=== PATIENT | male | born 1970 | race Caucasian/White ===

== ENCOUNTER 2019-11-05 07:06 | Emergency (ER) | payer BC ==
--- NOTE | 2019-11-05 08:17 | EDM.PDOC ---
ED HPI GENERAL MEDICAL PROBLEM - General Chief Complaint: General Stated Complaint: CUT FINGER Time Seen by Provider: 11/05/19 07:40 Source of Information: Reports: Patient, RN History Limitations: Reports: No Limitations - History of Present Illness INITIAL COMMENTS - FREE TEXT/NARRATIVE: 49 yo male presents [place] to right [place] He was stepping out of shower and cut finger on the toilet. He is here from [place] and planning to fish for a couple days. He is here with friends. Tetanus vaccine updated. Past Medical History - Past Health History Medical/Surgical History: Denies Medical/Surgical History Social & Family History - Tobacco Use Smoking Status *Q: Never Smoker Second Hand Smoke Exposure: No - Caffeine Use Caffeine Use: Reports: Coffee - Recreational Drug Use Recreational Drug Use: No ED ROS GENERAL - Review of Systems Review Of Systems: See Below Constitutional: Reports: No Symptoms Respiratory: Reports: No Symptoms Cardiovascular: Reports: No Symptoms Skin: Reports: Other (laceration of right pointer finger.) ED EXAM, GENERAL - Physical Exam Exam: See Below Exam Limited By: No Limitations General Appearance: Alert, No Apparent Distress Ears: Hearing Grossly Normal Throat/Mouth: Normal Voice, No Airway Compromise Neck: Full Range of Motion Respiratory/Chest: No Respiratory Distress Extremities: Normal Range of Motion, Other (good finger to thumb touch) Neurological: Alert, Oriented, Normal Cognition Psychiatric: Normal Affect, Normal Mood Skin Exam: Warm, Dry, Other (laceration to right pointer finger, 4 cm in length) ED GENERAL MEDICAL PROCEDURES - Laceration/Wound Repair Right Digit - 2nd (Index) Lac/wound length in cm: 4 Appearance: Superficial Distal NVT: Neuro & Vascular Intact, No Tendon Injury Anesthetic Type: Local Local Anesthesia - Lidocaine (Xylocaine): 1% Plain Local Anesthetic Volume: 4cc Skin Prep: Chlorhexidine (Hibiciens), Providone-Iodine (Betadine), Saline, Sterile Drape Exploration/Debridement/Repair: Wound Explored, No Foreign Material Found Suture Size: 4-0 Suture Type: Nylon, Simple Sterile Dressing Applied: Nurse Tetanus Status Addressed: Yes Complications: No Course - Vital Signs Last Recorded V/S: Last Vital Signs Temp 97.7 F 11/05/19 07:41 Pulse 82 11/05/19 07:41 Resp 16 11/05/19 07:41 BP 109/79 11/05/19 07:41 Pulse Ox 99 11/05/19 07:41 Departure - Departure Time of Disposition: 08:16 Disposition: Home, Self-Care 01 Condition: Good Clinical Impression: Laceration - Discharge Information *PRESCRIPTION DRUG MONITORING PROGRAM REVIEWED*: Not Applicable *COPY OF PRESCRIPTION DRUG MONITORING REPORT IN PATIENT SELVIN: Not Applicable Instructions: Laceration Care, Adult, [id number] Referrals: PCP,None [Primary Care Provider] - Forms: ED Department Discharge Care Plan Goals: Follow up with primary provider in 10-14 days for suture removal. Keep wound clean and dry. Watch for signs of infection. Return or call with any questions or concerns.l Sepsis Event Note - Evaluation Sepsis Screening Result: No Definite Risk - Focused Exam Vital Signs: Vital Signs Temp Pulse Resp BP Pulse Ox 11/05/19 07:41 97.7 F 82 16 109/79 99 Date Exam was Performed: 11/05/19 Time Exam was Performed: 08:11 - Assessment/Plan Plan: Follow-up with PCP in 10-14 days. Recommend to monitor for signs of infection. Keep area clean and dry for 24-48 hour. Tetanus vaccine updated. Pt discharged ambulatory without any distress.
[2019-11-05] MEDS: Diphtheria,Pertussis(Acell),Tetanus Vaccine 0.5 ML SDV inactive IM ONE (08:31)
[2019-11-06] MEDS: Mupirocin Oint 22 GM Tube TOP ONE (04:38)
== END 2019-11-05 08:20 | disposition home or self-care (01) ==
LOC: LB.ED 07:06
DX: S61.210A Laceration without foreign body of right index finger without damage to nail, initial encounter (principal); W26.9XXA Contact with unspecified sharp object(s), initial encounter; Y92.89 Other specified places as the place of occurrence of the external cause
CPT/HCPCS: 12002; 90471; 90715; 99282; J2001